=== PATIENT | female | born 1990 | race Caucasian/White ===

== ENCOUNTER 2024-08-19 17:56 | Emergency (ER) | payer OTHER, SELFPAY ==
[2024-08-19 18:05] VITALS: BP 126/77; PULSE 71; RESP 18; TEMP 36.6; O2SAT 99; BMI 30.2
--- NOTE | 2024-08-19 18:12 | XR_ITS ---
PROCEDURE INFORMATION: Exam: XR Right Shoulder Exam date and time: 08/19/2024 6:20 PM Age: 34 years old Clinical indication: Injury or trauma; Fall; Blunt trauma (contusions or hematomas); Shoulder; Right TECHNIQUE: Imaging protocol: Radiologic exam of the right shoulder. Views: 2 or more views. COMPARISON: CR Cervical spine 08/19/2024 6:17 PM FINDINGS: Bones/joints: Normal. Soft tissues: Normal. IMPRESSION: No acute findings.
--- NOTE | 2024-08-19 18:12 | XR_ITS ---
PROCEDURE INFORMATION: Exam: XR Left Hip Exam date and time: 08/19/2024 6:25 PM Age: 34 years old Clinical indication: Injury or trauma; Fall; Blunt trauma (contusions or hematomas); Left; Pelvic region TECHNIQUE: Imaging protocol: Radiologic exam of the left hip. Views: 2 or 3 views hip with pelvis when performed. COMPARISON: No relevant prior studies available. FINDINGS: Bones/joints: Unremarkable. No acute fracture. Soft tissues: Unremarkable. IMPRESSION: No acute findings.
--- NOTE | 2024-08-19 18:12 | XR_ITS ---
PROCEDURE INFORMATION: Exam: XR Cervical Spine Exam date and time: 08/19/2024 6:17 PM Age: 34 years old Clinical indication: Injury or trauma; Fall; Blunt trauma TECHNIQUE: Imaging protocol: Radiologic exam of the cervical spine. Views: 2 or 3 views. COMPARISON: No relevant prior studies available. FINDINGS: Bones/joints: Normal. No acute fracture. Normal alignment. Soft tissues: Unremarkable. IMPRESSION: No acute findings.
[2024-08-19 18:25] LABS: UTC Pregnancy Test, Urine Negative (Negative)
--- NOTE | 2024-08-19 18:31 | EXP.UTC ---
Discharge Plan Disposition Patient Disposition: Home, Self-Care Condition: Good Prescriptions Prescriptions: New ibuprofen 600 mg tablet 600 mg PO Q6HP PRN (Reason: Moderate Pain) Qty: 20 0RF methocarbamol 500 mg tablet 500 mg PO TID PRN (Reason: muscle spasm) Qty: 12 0RF Referrals Follow up/Referrals: Jake Burdick PA [Primary Care Provider] - See instructions Activity Restrictions/Add. Instructions Additional Instructions/Restrictions: Ice to areas may help with pain and soreness Warm epson salt soaks may help with pain and soreness Ibuprofen for pain Follow up with your Family Doctor if pain and tingling continues Over the counter Muscle rubs may help with pain and soreness Clinical Impressions Clinical Impression: Fall Instructions Patient Instructions: DI for Contusion, Ibuprofen, DI for Muscle Spasm Print Language Print Language: Estonian Discharge ED Provider[place] Maddi Dietz [facility] [place] General Stated complaint: [id number] LT leg tingling Mode of Arrival: Ambulatory Source of Information: Patient Limitations: No Limitations Time Seen by Provider: 08/19/24 18:20 Description of Symptoms (Recalled from Triage Doc. by RN): PATIENT C/O PAIN TO LEFT HIP AND LEG, NECK, AND RIGHT SHOULDER AFTER SLIPPING ON ICE AND FALLING THIS MORNING HEENT Symptoms (Recalled from RN notes): No Resp Symptoms (Recalled from RN notes): No Skin Symptoms (Recalled from RN notes): No MS Symptoms (Recalled from RN notes): Yes Functional Status (Recalled from RN notes): WNL History of Present Illness Provider Complaint: Pt States that she slipped and fell on ice this morning and not sure exactly how she landed but moreso on her left hip and having pain in her right shoulder up the side of her neck, not sure if she may have pulled something States that the pain/tingly feeling in her left hip going down her left leg and hurts when she moves it States that as the day went on she was getting more sore so she came in to get checked Related Data Previous Rx's ?Medication ?Instructions ?Recorded ibuprofen 600 mg tablet 600 mg PO Q6HP PRN Moderate Pain 08/19/24 #20 tabs methocarbamol 500 mg tablet 500 mg PO TID PRN muscle spasm #12 08/19/24 tabs Allergies Allergy/AdvReac Type Severity Reaction Status Date / Time Sulfa (Sulfonamide Allergy Unknown Verified 08/19/24 18:18 Antibiotics) allergy reaction Worker's Comp Is this a Worker's Comp case?: No [facility] Disclaimer: The information contained in this section may have been updated after the patient was seen, as this information can be updated by other users. Surgical History (Updated 08/19/24 @ 18:19 by Ne Turk RN) History of tubal ligation Social History Smoking Status: Unknown if ever smoked alcohol intake: never current occupational status: employed Travel in the last 8 weeks: None ROS Obtained: Yes All systems reviewed & no additional complaints except as documented and Yes Systems reviewed as appropriate & no additional complaints except as documented Constitutional Constitutional: Reports system reviewed and no additional complaints, except as documented and Reports as per HPI ENT Ears, Nose, Mouth, and Throat: Reports system reviewed and no additional complaints, except as documented, Reports as per HPI and Reports neck pain (pain on right side of neck into right shoulder area after falling earlier ) Cardiovascular Cardiovascular: Reports system reviewed and no additional complaints, except as documented and Reports as per HPI Respiratory Respiratory: Reports system reviewed and no additional complaints, except as documented and Reports as per HPI Gastrointestinal Gastrointestingal: Reports system reviewed and no additional complaints, except as documented and as per HPI Musculoskeletal Musculoskeletal: Reports system reviewed and no additional complaints, except as documented, Reports as per HPI, Reports neck pain (pain on right side of neck into right shoulder area after falling earlier ) and Reports tingling (in left hip and leg with pain also) Neurologic Neurologic: Reports tingling (in left hip and leg with pain also) Physical Exam General General appearance: alert and in no apparent distress ENT ENT exam: Present normal exam, normal oropharynx, mucous membranes moist and TM's normal bilaterally Neck Neck exam: Present normal inspection, full ROM and trachea midline; Absent tenderness Respiratory Respiratory exam: Present normal lung sounds bilaterally; Absent respiratory distress or wheezes Cardiovascular Cardiovascular exam: Present regular rate, normal rhythm and normal heart sounds Back Exam Back exam: Present sciatic notch tenderness (L) Back 1 view image: 1. reports tightness/tenderness in area with movement no bruising or obvious deformity noted 2. reports pain in left buttock/hip area that feels tingly/pain going down into left leg worse with movement Neurological Exam Neurological exam: Present alert, oriented X3 and normal gait Medical Decision Making Medical Records Screening: Per USPSTF and CDC recommendations, given the prevalence of disease in our region, it is our hospital?s policy to screen for HIV and viral Hepatitis for all patients aged 18 and over and those with ongoing risk factors. Andre Inquiry Pt receiving controlled substance: No Andre was queried for this patient: No Vital Signs: 08/19/24 18:05 Temperature 97.9 F Temperature Source Oral Pulse Rate [Left Brachial] 71 Respiratory Rate 18 Blood Pressure [Left Arm] 126/77 Blood Pressure Mean [Left Arm] 93 Blood Pressure Source [Left Arm] Automatic Cuff Blood Pressure Position [Left Arm] Sitting 02 Sat by Pulse Oximetry 99 Oxygen Delivery Method Room Air Lab Data Lab results reviewed: Yes I reviewed the patient's lab results. Lab Results 08/19/24 18:08: [facility] Negative Orders (Tests/Meds): ORDERS Category Date Time Status Cervical spine XR 3 views [XR cervical spine 3V] Stat Exams 08/19/24 18:12 Ordered XR hip LT 2-3V w/pelvis Stat Exams 08/19/24 18:12 Ordered XR shoulder RT min 2V Stat Exams 08/19/24 18:12 Ordered Radiology Data #1: Image(s): Hip (with pelvis left) Image Reviewed: Yes I have reviewed radiologist's interpretation IMPRESSION: No acute findings. #2: Image(s): Shoulder (right) Image Reviewed: Yes I have reviewed radiologist's interpretation IMPRESSION: No acute findings. #3: Image(s): C-Spine Image Reviewed: Yes I have reviewed radiologist's interpretation IMPRESSION: No acute findings.
[2024-08-19 19:33] VITALS: BP 126/77; PULSE 71; RESP 18; TEMP 36.6; O2SAT 99
== END 2024-08-19 19:43 | disposition home or self-care (01) ==
PROVIDERS: Emergency Provider Nurse Practitioner; PCP Student in an Organized Health Care Education/Training Program
DX: M54.2 Cervicalgia (principal); M25.511 Pain in right shoulder; M25.552 Pain in left hip; W19.XXXA Unspecified fall, initial encounter
CPT/HCPCS: 72040; 73030; 73502; 81025; 99213; G0381